=== PATIENT | female | born 1940 | race Caucasian/White ===

== ENCOUNTER → 2016-09-30 | Outpatient (CLI) | payer OTHER ==
--- NOTE | 2016-09-30 12:48 | MA ---
Screening Digital left Mammogram Clinical Indications: Routine screening. Personal history of right breast cancer treated with mastect ji. Technique: Standard cephalocaudal and 2 mediolateral oblique projections were obtained. This examin ation was processed by the [employer] computer aided detection system. Comparison: August 2015, February 2014, January 2013 and December 2011. Breast density: A; The breast tissue is mostly fat. Findings: CAD was reviewed. No suspicious findings are identified. Impression: Negative mammogram. BI-RADS 1. Recommendation: Routine screening is recommended in one year, as long as physical examination is rose ign in this patient with fat replaced breast parenchyma. [facility] will send a result letter to the patient. Negative mammography should not preclude additional workup of a clinically suspicious finding. The patient's information is entered into a reminder system with a target due date for her next mammo gram. .
== END ==
LOC: BMCIMAGING 09:27
DX: Z12.31 Encounter for screening mammogram for malignant neoplasm of breast (principal); Z85.3 Personal history of malignant neoplasm of breast
CPT/HCPCS: G0202-52

== ENCOUNTER 2017-03-31 11:58 | Emergency (ER) | payer OTHER ==
[2017-03-31] MEDS ORDERED: ONDANSETRON DISINTEGRATING 4 MG TAB PO ONE (12:14)
--- NOTE | 2017-03-31 12:44 | CPEKG ---
Heart Rate: 73 RR Interval: 822 P-R Interval: 176 QRSD Interval: 74 QT Interval: 404 QTC Interval: 446 P Castell: 56 QRS Castell: 33 EKG Severity - NORMAL ECG - EKG Impression: SINUS RHYTHM Electronically Signed By: Eduin Davis 31-Mar-2017 21:09:07
[2017-03-31 13:03] VITALS: O2SAT 96
--- NOTE | 2017-03-31 13:12 | EDPHY ---
H & P Time Seen by Provider: 03/31/17 13:07 HPI/ROS: Chief complaint. Shaking, weak HPI. 76-year-old female was on her way to a annual physical routinely scheduled this morning. However on the way she felt shaky and off balance and somewhat nauseated. She did take her medications this morning. She took my anti stomach and really did not eat. She has had nausea and vomiting x1. She denies chest pain, shortness of breath, abdominal pain. Denies fever cough. Slight dizziness on standing. Recently has been told she had high calcium level. Patient is concerned as she is a diabetic ROS Constitutional. no fever/chills, no weakness Eyes. no problems with vision ENT. no sore throat, no nasal drainage Cardiovascular. no chest pain Respiratory. no shortness of breath, no cough Abdominal. No abdominal pain but nausea and vomiting . no problems urinating MS. no calf pain/swelling, no neck/back pain, no joint pain Skin. no rash Lymph. no swollen glands Neuro. Dizzy and off balance Past Medical/Surgical History: Mda-bqbxwci-kqtpdkeke diabetes on metformin, dyslipidemia, kidney disease Social History: , nonsmoker, no alcohol Smoking Status: Never smoked Physical Exam: General Appearance: Alert well-developed female mild distress vital signs are stable Eyes: Pupils equal and round no pallor or injection. ENT, Mouth: Mucous membranes are moist. Respiratory: There are no retractions, lungs are clear to auscultation. Cardiovascular: Regular rate and rhythm. Gastrointestinal: Abdomen is soft and nontender, no masses, bowel sounds normal. Neurological: Awake and alert, sensory and motor exams grossly normal. Speech is normal. Cranial nerves are normal. There is no pronator drift. Finger-to- nose [id number] are intact bilaterally Skin: Warm and dry, no rashes. Musculoskeletal: Neck is supple nontender. Extremities symmetrical, full range of motion. Psychiatric: Patient is oriented X 3, there is no agitation. Constitutional: Initial Vital Signs Temperature (C) 36.4 C 03/31/17 12:08 Heart Rate 71 03/31/17 12:08 Respiratory Rate 18 03/31/17 12:08 Blood Pressure 124/63 H 03/31/17 12:08 O2 Sat (%) 100 03/31/17 12:08 O2 Delivery Mode Room Air O2 (L/minute) 2 Allergies/Adverse Reactions: No Known Allergies Allergy (Unverified 03/31/17 12:13) Home Medications: Medication Instructions Recorded Atorvastatin Calcium 03/31/17 Metformin HCl 03/31/17 Potassium Chloride 20 meq PO DAILY #10 tablet.er 03/31/17 Medical Decision Making - Diagnostics EKG Interpretation: EKG interpreted by me shows normal sinus rhythm with normal interval axis. QRS is normal there is no significant ST elevation or depression. No arrhythmia. The rate is 73 Procedures: Oral potassium and IV Mag sulfate ED Course/Re-evaluation: Re-evaluation 2:35 p.m. patient is feeling much better. Still slightly dizzy on standing but able to ambulate. The patient and I discussed laboratory EKG evaluation. We discussed treatment plan including criteria for return importance of follow-up and further evaluation. She expresses understanding and agreement Differential Diagnosis: I considered hypoglycemia, acute coronary syndrome and arrhythmia, electrolyte abnormalities - Data Points Laboratory Results: Laboratory Results 03/31/17 10:00 03/31/17 10:00 03/31/17 03/31/17 03/31/17 12:40 10:00 10:00 WBC 11.03 10^3/uL H 10^3/uL (3.80-9.50) RBC 3.62 10^6/uL L 10^6/uL (4.18-5.33) Hgb 11.4 g/dL L g/dL (12.6-16.3) POC Hgb 12.2 gm/dL L gm/dL (12.6-16.3) Hct 33.6 % L % (38.0-47.0) POC Hct 36 % L % (38-47) MCV 92.8 fL fL (81.5-99.8) MCH 31.5 pg pg (27.9-34.1) MCHC 33.9 g/dL g/dL (32.4-36.7) RDW 14.4 % % (11.5-15.2) Plt Count 268 10^3/uL 10^3/uL (150-400) MPV 10.5 fL fL (8.7-11.7) Neut % (Auto) 80.0 % H % (39.3-74.2) Lymph % (Auto) 12.0 % L % (15.0-45.0) Parker % (Auto) 6.4 % % (4.5-13.0) Eos % (Auto) 0.5 % L % (0.6-7.6) Baso % (Auto) 0.3 % % (0.3-1.7) Nucleat RBC Rel Count 0.0 % % (0.0-0.2) Absolute Neuts (auto) 8.83 10^3/uL H 10^3/uL (1.70-6.50) Absolute Lymphs (auto) 1.32 10^3/uL 10^3/uL (1.00-3.00) Absolute Monos (auto) 0.71 10^3/uL 10^3/uL (0.30-0.80) Absolute Eos (auto) 0.05 10^3/uL 10^3/uL (0.03-0.40) Absolute Basos (auto) 0.03 10^3/uL 10^3/uL (0.02-0.10) Absolute Nucleated RBC 0.00 10^3/uL 10^3/uL (0-0.01) Immature Gran % 0.8 % % (0.0-1.1) Immature Gran # 0.09 10^3/uL 10^3/uL (0.00-0.10) POC Sodium 145 mEq/L H mEq/L (134-144) Sodium 147 mEq/L H mEq/L (134-144) POC Potassium 3.0 mEq/L L mEq/L (3.3-5.0) Potassium 3.2 mEq/L L mEq/L (3.5-5.2) POC Chloride 107 mEq/L mEq/L (97-110) Chloride 110 mEq/L mEq/L (97-110) Carbon Dioxide 15 mEq/l L mEq/l (22-31) Anion Gap 22 mEq/L H mEq/L (8-16) POC BUN 16 mg/dL mg/dL (7-23) BUN 16 mg/dL mg/dL (7-23) Creatinine 1.3 mg/dL H mg/dL (0.6-1.0) POC Creatinine 1.4 mg/dL H mg/dL (0.6-1.0) Estimated GFR 40 Glucose 96 mg/dL mg/dL (70-100) POC Glucose 102 mg/dL H mg/dL (70-100) Calcium 8.9 mg/dL mg/dL (8.5-10.4) Troponin I < 0.012 ng/mL ng/mL (0-0.034) Medications Given: Discontinued Medications Sodium Chloride (Ns) 1,000 mls @ 0 mls/hr IV EDNOW ONE; Wide Open PRN Reason: Protocol Stop: 03/31/17 13:19 Last Admin: 03/31/17 13:49 Dose: 1,000 mls Magnesium Sulfate/Dextrose (Magnesium Sulf 1 Gm (Premix)) 100 mls @ 100 mls/hr IV EDNOW ONE Stop: 03/31/17 14:57 Last Admin: 03/31/17 14:24 Dose: 100 mls Ondansetron HCl (Zofran Odt) 4 mg PO EDNOW ONE Stop: 03/31/17 12:15 Last Admin: 03/31/17 12:15 Dose: 4 mg Potassium Chloride (Potassium Chloride Oral Liquid) 20 meq PO EDNOW ONE Stop: 03/31/17 13:58 Last Admin: 03/31/17 14:25 Dose: 20 meq Point of Care Test Results: 03/31/17 12:40 POC Sodium 145 H POC Potassium 3.0 L POC Chloride 107 POC BUN 16 POC Creatinine 1.4 H POC Glucose 102 H Departure - Departure Disposition: Home, Routine, Self-Care Clinical Impression: Acute hypokalemia Condition: Good Instructions: Hypokalemia (ED) Additional Instructions: Take daily potassium supplement. Bananas and orange juice contain potassium as well. Drink plenty of fluids and stay hydrated. Return for worsening dizziness , chest discomfort, trouble breathing. Recheck by Dr. Lunsford in the next 1-2 days. Referrals: Britney Lunsford MD [Primary Care Provider] - 1-2 days without fail Prescriptions: Potassium Chloride 20 meq PO DAILY #10 tablet.er
[2017-03-31] MEDS ORDERED: NS 1,000 ML IV ONE (13:18)
[2017-03-31 13:26] LABS: % IMMATURE GRANULYOCYTES 0.8 % (0.0-1.1); ABSOLUTE IMMATURE GRANULOCYTES 0.09 10^3/uL (0.00-0.10); ADD DIFF? NO; ADD MORPH? NO; ADD SCAN? NO; ATYPICAL LYMPHOCYTE FLAG 0 (0-99); FRAGMENT RBC FLAG 0 (0-99); HEMATOCRIT 33.6 % (38.0-47.0); HEMOGLOBIN 11.4 g/dL (12.6-16.3); LEFT SHIFT FLG 0 (0-99); LIPEMIA HEMOLYSIS FLAG 90 (0-99); MEAN CELL HEMOGLOBIN 31.5 pg (27.9-34.1); MEAN CELL HEMOGLOBIN CONCENTR. 33.9 g/dL (32.4-36.7); MEAN CELL VOLUME 92.8 fL (81.5-99.8); MEAN PLATELET VOLUME 10.5 fL (8.7-11.7); PLATELET CLUMPS FLAG 0 (0-99); PLATELET COUNT 268 10^3/uL (150-400); RED BLOOD CELL COUNT 3.62 10^6/uL (4.18-5.33); RED CELL DISTRIBUTION WIDTH 14.4 % (11.5-15.2)
[2017-03-31 13:32] LABS: ANION GAP 22 mEq/L (8-16); CALCIUM 8.9 mg/dL (8.5-10.4); CARBON DIOXIDE 15 mEq/l (22-31); CHLORIDE 110 mEq/L (97-110); CREATININE 1.3 mg/dL (0.6-1.0); GLOMERULAR FILTRATION RATE 40; GLUCOSE 96 mg/dL (70-100); POTASSIUM 3.2 mEq/L (3.5-5.2); SODIUM 147 mEq/L (134-144)
[2017-03-31 13:44] LABS: TROPONIN I < 0.012 ng/mL (0-0.034)
[2017-03-31] MEDS ORDERED: POTASSIUM CL 20 MEQ/15 ML UDCUP PO ONE (13:57)
[2017-03-31] MEDS ORDERED: MAGNESIUM SULF 1 GM/DEXTROSE 100 ML IV ONE (13:58)
[2017-03-31 15:57] VITALS: BP 124/70; PULSE 72; RESP 16; TEMP 97.9
== END 2017-03-31 15:55 | disposition home or self-care (01) ==
DX: E87.6 Hypokalemia (principal); E86.9 Volume depletion, unspecified; E11.9 Type 2 diabetes mellitus without complications; Z79.84 Long term (current) use of oral hypoglycemic drugs
CPT/HCPCS: 93005; 96361; 96365; 99284; J3475; 82947-QW

== ENCOUNTER 2017-04-01 17:20 | Emergency (ER) | payer OTHER ==
[2017-04-01] MEDS ORDERED: NS 500 ML IV ONE (17:28)
[2017-04-01 17:36] VITALS: RESP 18
--- NOTE | 2017-04-01 17:48 | EDPHY ---
H & P Time Seen by Provider: 04/01/17 17:28 HPI/ROS: HPI Blood work recheck. 76-year-old female by private vehicle. I received a call from performance makeup artist, Dr. Jaydon Yuan, this patient was seen in the emergency department on March 31. At that time she was feeling shaky and was discharged with a diagnosis of hypokalemia. Dr. Yuan called me because he was concerned about her low bicarbonate which was 15 and an elevated anion gap. He told me that she is on metformin and is concerned about a lactic acidosis secondary to metformin. The patient has no complaints and is feeling much better. In fact she states that she feels fine. She was called by Dr. Yuan and told to come to our emergency department for repeat blood work to evaluate her chemistry panel and check a lactate. Please see Dr. Eduin Davis note from March 31 for further details. ROS: Constitutional: No fever, no chills. No weakness. Eyes: No discharge. No changes in vision. ENT: No sore throat. No nasal congestion or rhinorrhea. Respiratory: No cough. No shortness of breath. Cardiac: No chest pain, no palpitations. Gastrointestinal: No abdominal pain, no vomiting, no diarrhea. Genitourinary: No hematuria. No dysuria or increased frequency with urination. Musculoskeletal: No back pain. No neck pain. No myalgias or arthralgias. Skin: No rashes. Neurological: No headache. No focal weakness or altered sensation. Past medical history: Kidney disease with a baseline creatinine of 1.3, type 2 diabetes on metformin, dyslipidemia. Social history: Nonsmoker. No alcohol. Here by herself. Physical Exam: General Appearance: Alert, no distress. This patient is responding to questions appropriately and in full sentences. This patient appears well- hydrated and well-nourished. Eyes: Pupils equal and round no pallor or injection. No lid edema, erythema or injection. Respiratory: There are no retractions, lungs are clear to auscultation with good air movement bilaterally. Cardiovascular: Regular rate and rhythm. No murmur. Gastrointestinal: Abdomen is soft and nontender, no masses, bowel sounds normal. No focal tenderness at McBurney's point. No Hancock sign. Neurological: Motor sensory function is grossly intact. Cranial nerves are normal. Gait is normal. Skin: Warm and dry, no rashes. Musculoskeletal: Neck is supple and nontender. Extremities are symmetrical. All joints range without pain or impingement. Psychiatric: No agitation. No depression. Database: EKG: Imaging: Procedures: Emergency department course: Repeat basic metabolic panel to evaluate potassium creatinine and bicarbonate status ordered. Will check venous lactate. She was started on IV normal saline with 500 cc to be given over the next hour. 6:20 p.m., laboratory work reviewed. Venous lactate is 3.4. Bicarbonate is 18 with an anion gap of 15. Discussed her case and presentation with on-call performance makeup artist from [facility], Dr. Catina Anders. Plan will be to finish the L of IV normal saline, repeat the venous lactate. If trending down will send patient home. [facility] will see her on Tuesday. She will be instructed to discontinue her metformin. 6:35 p.m., patient notified of above laboratory results and management plan. All of her questions were answered. 7:30 p.m., repeat venous lactate is 2.3. Patient will be discharged to home. She will follow up with [facility] on Tuesday for repeat venous lactate and basic metabolic panel. She has been told to discontinue her metformin and she will be started on a new diabetic medication by [facility] on Tuesday. Return to emergency department precautions have been discussed with the patient. All of her questions were answered. She was discharged in good condition. Her is with her. Differential Diagnosis: The differential diagnosis on this patient includes but is not limited to lactic acidosis secondary to metformin. Metabolic acidosis, sepsis, serious bacterial infection ischemia unlikely. This represents a partial list of diagnoses considered. These considerations are based on history, physical exam , past history, reassessment and diagnostic testing. Smoking Status: Never smoked Constitutional: Initial Vital Signs Temperature (C) 36.7 C 04/01/17 17:32 Heart Rate 101 H 04/01/17 17:32 Respiratory Rate 18 04/01/17 17:32 Blood Pressure 124/67 H 04/01/17 17:32 O2 Sat (%) 96 04/01/17 17:32 O2 Delivery Mode Room Air Allergies/Adverse Reactions: No Known Allergies Allergy (Verified 04/01/17 17:31) Home Medications: Medication Instructions Recorded Atorvastatin Calcium 03/31/17 Metformin HCl 03/31/17 Potassium Chloride 20 meq PO DAILY #10 tablet.er 03/31/17 Medical Decision Making - Data Points Laboratory Results: Laboratory Results 04/01/17 17:43 04/01/17 04/01/17 04/01/17 17:43 17:43 07:10 VBG Lactic Acid 3.4 mmol/L H D mmol/L 2.3 mmol/L H mmol/L (0.7-2.1) (0.7-2.1) Sodium 142 mEq/L mEq/L (134-144) Potassium 4.7 mEq/L mEq/L (3.5-5.2) Chloride 109 mEq/L mEq/L (97-110) Carbon Dioxide 18 mEq/l L mEq/l (22-31) Anion Gap 15 mEq/L mEq/L (8-16) BUN 16 mg/dL mg/dL (7-23) Creatinine 1.2 mg/dL H mg/dL (0.6-1.0) Estimated GFR 44 Glucose 101 mg/dL H mg/dL (70-100) Calcium 8.7 mg/dL mg/dL (8.5-10.4) Medications Given: Discontinued Medications Sodium Chloride (Ns) 500 mls @ 0 mls/hr IV ONCE ONE; Wide Open PRN Reason: Protocol Stop: 04/01/17 17:29 Last Admin: 04/01/17 18:01 Dose: 500 mls Departure - Departure Disposition: Home, Routine, Self-Care Clinical Impression: Elevated venous lactate, Metformin adverse reaction Condition: Good Instructions: Type 2 Diabetes in Adults (ED) Additional Instructions: Read and follow provided instructions. Follow-up with [facility], as discussed, on Tuesday without fail for re- evaluation and repeat blood work. They will prescribe you a new medication for your type 2 diabetes. Discontinue metformin. Do not take metformin. Return to the emergency department for worsening symptoms or other serious concerns. Keep well hydrated. Referrals: Britney Lunsford MD [Primary Care Provider] - As per Instructions Catina Castanon MD [Medical Doctor] - As per Instructions
[2017-04-01 18:02] LABS: CALCIUM 8.7 mg/dL (8.5-10.4); CREATININE 1.2 mg/dL (0.6-1.0); POTASSIUM 4.7 mEq/L (3.5-5.2)
[2017-04-01 19:37] VITALS: BP 122/69; PULSE 81; TEMP 97.9; O2SAT 94
== END 2017-04-01 19:43 | disposition home or self-care (01) ==
LOC: CED 17:20
DX: R74.0 Nonspecific elevation of levels of transaminase and lactic acid dehydrogenase [LDH] (principal); T38.3X5A Adverse effect of insulin and oral hypoglycemic [antidiabetic] drugs, initial encounter; E11.9 Type 2 diabetes mellitus without complications; E86.9 Volume depletion, unspecified
CPT/HCPCS: 80048-PO; 83605-PO

== ENCOUNTER 2017-10-22 13:20 | Emergency (ER) | payer OTHER ==
[2017-10-22 13:30] VITALS: TEMP 97.9
--- NOTE | 2017-10-22 14:23 | EDPHY ---
H & P Stated Complaint: R shoulder pain after mechanical fall today. HPI/ROS: CHIEF COMPLAINT: Right shoulder pain HISTORY OF PRESENT ILLNESS: This is a 77-year-old female who presents with right shoulder pain after mechanical fall. She was walking up some steps and fell forward, initially landing on her right elbow. She has an abrasion on the right elbow but no pain. She has pain in the right shoulder that is worse with movement of the right arm. No numbness or weakness. She is right-handed. REVIEW OF SYSTEMS: A ten point review of systems was performed and is negative with the exception of the items mentioned in the HPI. Past medical history: 1. Diabetes, not currently on any medication 2. Kidney disease 3. Hypertension 4. Breast cancer treated 43 years ago 5. Sebaceous cysts Past surgical history: 1. Right mastectomy 43 years ago followed by chemotherapy 2. Removal of sebaceous cysts Social history: She lives with her . She is retired from the [employer] where she worked in [employer]. No tobacco use. General Appearance: Alert. Vital signs reviewed. Eyes: Pupils equal and round, no conjunctival injection, no discharge. Anicteric. Neck: Nontender to palpation over the cervical spine in the midline. No pain with active range of motion of her neck.. Respiratory: Lungs are clear to auscultation; no wheezes, rales, or rhonchi. Cardiovascular: Regular rate and rhythm; no murmur, rub, or gallop. Gastrointestinal: Abdomen is soft and nontender, no masses or organomegaly, bowel sounds normal. Skin: Warm and dry, no rashes on exposed skin, normal color. Superficial abrasion right elbow. Back: Nontender to palpation over the thoracolumbar spine. No CVAT. Extremities: Tender to palpation over the upper humerus with no palpable or visible deformity. There is also some tenderness over the posterior aspect of the right shoulder. Full active range of motion of the right elbow. Full active range of motion right wrist. Neurological: Alert and oriented. Moving all four extremities easily and equally. Sensation intact to light touch over the right upper extremity. Psychiatric: Normal affect. - Personal History Current Tetanus Diphtheria and Acellular Pertussis (TDAP): Yes Tetanus Vaccine Date: within 10 years - Medical/Surgical History Hx Asthma: No Hx Chronic Respiratory Disease: No Hx Diabetes: Yes Hx Cardiac Disease: No Hx Renal Disease: No Hx Cirrhosis: No Hx Alcoholism: No Hx HIV/AIDS: No Hx Splenectomy or Spleen Trauma: No Other PMH: DM type II, high cholesterol, Kidney disease, R masectomy - Social History Smoking Status: Former smoker Constitutional: Initial Vital Signs Temperature (C) 36.6 C 10/22/17 13:27 Heart Rate 66 10/22/17 13:27 Respiratory Rate 18 10/22/17 13:27 Blood Pressure 138/54 H 10/22/17 13:27 O2 Sat (%) 100 10/22/17 13:27 O2 Delivery Mode Room Air Allergies/Adverse Reactions: No Known Allergies Allergy (Verified 10/22/17 13:30) Home Medications: Medication Instructions Recorded Atorvastatin Calcium 03/31/17 Lisinopril 10/22/17 Potassium Chloride 10/22/17 Vitamin B12 10/22/17 traMADol [Ultram 50 mg (*)] 50 mg PO Q4 PRN #16 tab 10/22/17 Medical Decision Making - Diagnostics Imaging: I viewed and interpreted images myself ED Course/Re-evaluation: Right shoulder x-ray does not show evidence of fracture or dislocation. 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 She is given a sling to use as needed for comfort. Danger signs are reviewed with her. Differential Diagnosis: I considered a differential diagnosis that includes but is not limited to fracture, dislocation, sprain/strain, contusion, abrasion, and compartment syndrome. - Data Points Medications Given: Discontinued Medications Acetaminophen (Tylenol) 650 mg PO EDNOW ONE Stop: 10/22/17 14:25 Last Admin: 10/22/17 14:27 Dose: 650 mg Departure - Departure Disposition: Home, Routine, Self-Care Clinical Impression: Right shoulder strain Qualifiers: Encounter type: initial encounter Qualified Code(s): S46.911A - Strain of unspecified muscle, fascia and tendon at shoulder and upper arm level, right arm , initial encounter Condition: Good Instructions: Rotator Cuff Injury (ED), How to Use a Sling (ED), R.I.C.E. Treatment (ED), Shoulder Pain (ED) Additional Instructions: Dr. Chowdary is the orthopedist at [facility]. You can call his office on Tuesday, let the office staff know that you fell and have a shoulder injury. Schedule follow-up appointment. Since we discussed Dr. Theodore also, I am giving you his office contact information. He is not affiliated with [facility]. Wear the sling as needed for comfort. As we discussed, you can take your arm out of the sling and try to move it around. However, you should not force movements that are painful. You can take Tylenol 650 mg every 4 hr for pain as needed. Do not take more than 3000 mg of Tylenol in a 24 hr time period (no more than 9 pills in 24 hours ). I am writing a prescription for tramadol to use for more severe pain. You can take 50 mg of tramadol every 4 hr. Take this medication only as needed. Do not take more than 400 mg of tramadol in a single 24 hr time period (that would be 8 pills). I recommend that you write down when you take Tylenol and when you take tramadol. You can alternate them if you would like. If you have new numbness, new weakness, increased swelling, unbearable pain, any new or concerning symptoms--you should be re-evaluated. Referrals: Britney Lunsford MD [[facility] [place] Primary Care Provider] - As per Instructions Daniele Chowdary MD [Medical Doctor] - As per Instructions Darius Theodore MD [Medical Doctor] - As per Instructions Prescriptions: traMADol [Ultram 50 mg (*)] 50 mg PO Q4 PRN #16 tab PRN Reason: Pain, Breakthrough
[2017-10-22] MEDS ORDERED: ACETAMINOPHEN 325 MG TAB PO ONE (14:24)
[2017-10-22 15:09] VITALS: BP 129/88; PULSE 69; RESP 16; O2SAT 96
== END 2017-10-22 15:10 | disposition home or self-care (01) ==
LOC: CED 13:20
DX: S46.911A Strain of unspecified muscle, fascia and tendon at shoulder and upper arm level, right arm, initial encounter (principal); E11.9 Type 2 diabetes mellitus without complications; I10 Essential (primary) hypertension; Z85.3 Personal history of malignant neoplasm of breast; Z87.891 Personal history of nicotine dependence; W18.39XA Other fall on same level, initial encounter; Y99.8 Other external cause status; Y93.01 Activity, walking, marching and hiking
CPT/HCPCS: 73030; 99283; A4565

== ENCOUNTER → 2017-11-03 | Outpatient (CLI) | payer OTHER | LOC: FIMAGING 18:05 | PROVIDERS: ATTEND Orthopaedic Surgery Hand Surgery | DX: S42.294A Other nondisplaced fracture of upper end of right humerus, initial encounter for closed fracture (principal); M75.121 Complete rotator cuff tear or rupture of right shoulder, not specified as traumatic; R60.0 Localized edema ==